=== PATIENT | male | born 1940 | race Caucasian/White ===

== ENCOUNTER 2021-12-01 14:39 | Outpatient (CLI) | payer MEDICARE, SELFPAY ==
--- NOTE | ~2021-12-01 | XR_ITS ---
XR ankle RT min 3V DATE: 12/01/2021 14:55 INDICATION: Right ankle pain TECHNIQUE: 4 views COMPARISON: None FINDINGS: Posterior and anterior tibial dorsalis pedis artery calcifications. No fracture or dislocation of the ankle or disruption of the ankle mortise. Prominent posterior calcaneal enthesopathy. Minimal plantar calcaneal enthesopathy. IMPRESSION: Calcaneal enthesopathy Reviewed, dictated and finalized at location A. K SUPERVISOR IMPRESSION: Calcaneal enthesopathy
== END 2021-12-01 14:40 | disposition home or self-care (01) ==
LOC: ANHBWCIMG 14:42
PROVIDERS: Visit Provider Orthopaedic Surgery
DX: M25.571 Pain in right ankle and joints of right foot (principal); M77.31 Calcaneal spur, right foot
CPT/HCPCS: 73610